=== PATIENT | male | born 1985 | race Caucasian/White ===

== ENCOUNTER 2024-12-19 17:29 | Emergency (ER) | payer BC, SELFPAY ==
[2024-12-19 17:46] VITALS: BP 129/72; PULSE 89; RESP 14; TEMP 37.4; O2SAT 95
--- NOTE | 2024-12-19 18:14 | ED.GENADUL_ITS ---
Discharge Plan Disposition Patient Disposition: Home Condition: Stable Discharge Details Clinical Impression: Fall Primary Care Provider: Janelle,Local ED Provider: Ceferino Trinidad Home Meds and New Rx's Prescriptions: No Action losartan 50 mg tablet 50 mg PO DAILY semaglutide (weight loss) subcut Discharge Instructions Additional Instructions: You were seen in the emergency department for your fall from a ladder, you have left lateral back pain, no evidence of rib fracture on exam, no abdominal tenderness or bruising, normal neurologic function. I do not suspect any severe injury, you develop respiratory distress or bruising and rigid abdomen and or difficulty urinating or having a bowel movement or numbness or weakness to any extremity please return for imaging. Please take 1000 mg of Tylenol every 6 hours, fpc between that take 2 Advil also on a 6-hour schedule, alternate areas of heat and ice Discharge Data Discharge Date/Time-TO BE ENTERED AT DEPARTURE: 12/19/24 18:33 HPI General Date/Time Provider Initiated Documentation: 12/19/24 17:40 . HPI Narrative: 39 year-old male presents to ED today by POV/ambulating with a chief complaint of fall from a ladder ~10 feet while working on vacation house up here, landing on his L side with onset earlier today- laid on the couch for a while before coming in to get checked. Quality described as L lateral lumbar pain, no radiation to bruising, swelling, deformity, numbness to genitalia, urinary retention, bowel incontinence, chest pain, shortness of breath, neck pain, headstrike, LOC, nausea/vomiting. Severity is described as moderate. Palliating factors include took some Advil [employer]. Provoking factors include nothing specific. Events leading up to the incident/Associated Symptoms: Patient has been totally ambulatory since incident. Patient not anticoagulated. Related Data Home Medications ?Medication ?Instructions ?Recorded ?Confirmed losartan 50 mg tablet 50 mg PO DAILY 12/19/24 08 semaglutide (weight loss) subcut 12/19/24 Allergies Allergy/AdvReac Type Severity Reaction Status Date / Time penicillin G Allergy Mild Unknown Verified 12/19/24 17:51 Sulfa (Sulfonamide Allergy Mild Itching Verified 12/19/24 17:50 Antibiotics) General Stated Complaint: Fall/Non TraumaCriteria COREY: 3 Review of Systems All systems reviewed & are unremarkable except as noted in HPI and below Exam Narrative Exam Narrative: GENERAL APPEARANCE: Well-nourished, non-toxic, awake and alert, atraumatic, no acute distress. SKIN: Warm, pink, dry, intact, without rashes/lesions/ulcerations. HEAD: Normocephalic, atraumatic, normal hair distribution for gender/age. EYES: Normal conjunctiva, no exudates on lids/lashes. ENT: Nares patent, no circumoral cyanosis, no facial swelling NECK: Supple, trachea midline, painless cervical ROM, no cervical vertebral tenderness. LUNGS/CHEST: Lungs CTA bilaterally, non-labored respirations, normal A/P diameter, symmetrical expansion, no chest wall deformity HEART (CV/PV): Regular rate and rhythm without murmur, no peripheral edema, no JVD. ABDOMEN: Soft, non-distended, no guarding, no tenderness, no CVA tenderness to percussion. MSK: Normal ROM, no swelling/deformity to bilateral UEs or LEs, moving all extremities without weakness, no cyanosis, spine midline without tenderness- endorses pain to L lumbar paraspinal area but no tenderness or exacerbation with vigorous palpation, normal curvature. NEURO: Mental Status AAOx4 - alert to person, place, time, events No facial droop, no forehead involvement. Motor: No focal weakness - strength 5/5 in bilateral UEs and LEs, proximal and distal, symmetric. Sensory: sensation intact to light touch globally. Gait normal: patient ambulated without ataxia into ED room. PSYCH: euthymic, cooperative, pleasant, appropriate speech Course Vital Signs Vital signs: Vital Signs Temperature 37.4 C 12/19/24 17:46 Pulse 89 12/19/24 17:46 Respiratory Rate 14 12/19/24 17:46 Blood Pressure 129/72 12/19/24 17:46 Pulse Oximetry 95 12/19/24 17:46 Temperature 37.4 C 12/19/24 17:46 Temperature Source Oral 12/19/24 17:46 Pulse 89 12/19/24 17:46 Respiratory Rate 14 12/19/24 17:46 Blood Pressure 129/72 12/19/24 17:46 Blood Pressure Position Sitting 12/19/24 17:46 Pulse Oximetry 95 12/19/24 17:46 Oxygen Delivery Method Room Air 12/19/24 17:46 Oxygen Flow Rate 0 12/19/24 17:46 Pain Level 5 12/19/24 17:46 Medical Decision Making This dictation utilizes [id number] dictation software and may contain unedited grammatical errors. 39 year-old male presents to ED today by POV/ambulating with a chief complaint of fall from a ladder ~10 feet while working on vacation house up here, landing on his L side with onset earlier today- laid on the couch for a while before coming in to get checked. Quality described as L lateral lumbar pain, no radiation to bruising, swelling, deformity, numbness to genitalia, urinary retention, bowel incontinence, chest pain, shortness of breath, neck pain, headstrike, LOC, nausea/vomiting. Severity is described as moderate. Palliating factors include took some Advil [employer]GER. Provoking factors include nothing specific. Events leading up to the incident/Associated Symptoms: Patient has been totally ambulatory since incident. Patients' medical history: Noncontributory. Family and social history: Noncontributory. Pertinent exam findings / vital signs include minor tenderness well away from the spine in the left lumbar region, no crepitus or flail segment chest, lungs CTA diffusely, no abdominal tenderness, hips stable, no midline cervical vertebral tenderness, no scalp hematoma, neuro intact. Differential / pathologies of concern include fall, contusion, unlikely fracture. Diagnostic studies of: - Discussed the patient's completely benign head to toe trauma exam and reasonable to not perform imaging, strict return criteria for any acute worsening or neurologic abnormality. Interventions of: - 1 g p.o. Tylenol. ED Course/Assessment/Plan: 39-year-old male had a fall from ladder landing on his left side has minor left flank pain without ecchymosis, no signs of cauda equina, no respiratory distress, has had multiple hours of stability since the injury, reasonable to forego imaging at this time as he likely just has muscle strain and contusion, strict return criteria for any acute worsening, patient was comfortable with this disposition. Findings not consistent with fracture, cauda equina, hematuria, urinary retention, abdominal pain, chest pain, respiratory distress. Disposition of fall. Patient verbalized understanding of the plan and return to ED criteria and engaged in shared decision making. Medical Records Medical records reviewed: Yes I reviewed the patient's medical records. [facility] All Active Problems (Updated 12/19/24 @ 18:16 by TADEO Proctor (Acute) Social History Smoking/Tobacco Use Status: Never Smoking risk assessment performed?: Yes Alcohol Intake: current Substance use type: does not use
[2024-12-19] MEDS: Acetaminophen 500 MG TAB (18:32)
== END 2024-12-19 18:33 | disposition home or self-care (01) ==
LOC: ER 18:36
PROVIDERS: Emergency Provider Physician Assistant
DX: M54.50 Low back pain, unspecified (principal); W11.XXXA Fall on and from ladder, initial encounter
CPT/HCPCS: 99283; 99282